=== PATIENT | male | born 1960 | race Caucasian/White ===

== ENCOUNTER 2024-07-02 17:00 | Inpatient (IN) | payer OTHER ==
[~2024-07-02] VITALS: Ht 172.7 cm; Wt 129.6 kg
[2024-07-02] MEDS: NS (Normal Saline) 0.9% 1,000 ML IV ONE ×3 (17:35→18:51)
[2024-07-02] MEDS: LIDOCAINE 2% 5ML JELLY UROJET TOP ONE (18:00)
[2024-07-02 18:26] LABS: KETONE, URINE AUTO RFX NEGATIVE (NEGATIVE); LEUKOCYTE ESTERASE UR AUTO RFX NEGATIVE (NEGATIVE); NITRITE, URINE AUTO RFX NEGATIVE (NEGATIVE); RBC, URINE AUTO RFX 2 /HPF (0-3); SQUAM EPITHELIAL CELL UR AURFX 0 /HPF (0-6); WBC, URINE AUTO RFX 1 /HPF (0-3)
[2024-07-02 18:47] LABS: AMPHETAMINES LEVEL URINE NEGATIVE (NEGATIVE); BARBITURATES URINE NEGATIVE (NEGATIVE); BENZODIAZEPINES URINE NEGATIVE (NEGATIVE); CANNABINOIDS URINE NEGATIVE (NEGATIVE); COCAINE METABOLITE URINE NEGATIVE (NEGATIVE); METHADONE URINE NEGATIVE (NEGATIVE); OPIATES URINE NEGATIVE (NEGATIVE); PHENCYCLIDINE URINE NEGATIVE (NEGATIVE)
[2024-07-02 19:46] LABS: BASO # 0.1 10^3/uL (0.0-0.2); BASO % 0.3 % (0.0-1.0); EOS # 0.1 10^3/uL (0.0-0.5); EOS % 0.6 % (0.0-3.0); HEMATOCRIT 41.3 % (42.0-52.0); HEMOGLOBIN 14.4 g/dl (13.5-17.5); LYMPH # 0.7 10^3/uL (1.5-5.0); LYMPH % 4.1 % (24.0-44.0); MEAN CORPUSCULAR HEMOGLOBIN 31.3 pg (27.0-33.0); MEAN CORPUSCULAR HGB CONC 34.9 g/dl (32.0-36.5); MEAN CORPUSCULAR VOLUME 89.8 fl (80.0-96.0); MONO % 6.2 % (2.0-8.0); NEUTROPHILS # 14.3 10^3/uL (1.5-8.5); NEUTROPHILS % 88.3 % (36.0-66.0); PLATELET COUNT, AUTOMATED 223 10^3/uL (150-450); WHITE BLOOD COUNT 16.2 10^3/uL (4.0-10.0)
[2024-07-02] MEDS: CHARCOAL ACTIVATED LIQUID 25GM/120ML BTL PO ONE (19:50)
[2024-07-02 19:59] LABS: INR 1.04; PARTIAL THROMBOPLASTIN TIME 25.5 SECONDS (24.8-34.2); PROTHROMBIN TIME 13.9 SECONDS (12.5-14.5)
[2024-07-02 20:15] LABS: CK-MB VALUE MASS 3.6 NG/ML (<3.6)
[2024-07-02 20:16] LABS: ETHYL ALCOHOL (ETHANOL) 0.005 % (0.000-0.010); LIPASE 24 U/L (12-53)
[2024-07-02 20:17] LABS: CPK CREATINE PHOSPHOKINASE 349 U/L (46-171); MB/CK RELATIVE INDEX 1.03 (< OR =4)
[2024-07-02 20:18] LABS: DIGOXIN LEVEL < 0.1 NG/ML (0.8-2.0); SALICYLATE LEVEL < 3.0 MG/DL (<30)
[2024-07-02 20:19] LABS: THYROID STIMULATING HORMONE 5.772 uIU/ML (0.55-4.78)
[2024-07-02 20:20] LABS: FREE T4 1.34 NG/DL (0.89-1.76)
[2024-07-02 20:21] LABS: ALBUMIN 3.8 G/DL (3.2-5.2); ALKALINE PHOSPHATASE 78 U/L (40-129); ALT/SGPT 43 U/L (7.0-40); AST/SGOT 30 U/L (<34); BILIRUBIN,DIRECT 0.3 MG/DL (<0.4); BILIRUBIN,TOTAL 0.9 MG/DL (0.3-1.2); BLOOD UREA NITROGEN 24 MG/DL (9-23); CALCIUM LEVEL 8.2 MG/DL (8.3-10.6); CARBON DIOXIDE LEVEL 28 MMOL/L (20-31); CHLORIDE LEVEL 99 MMOL/L (98-107); CREATININE FOR GFR 1.58 MG/DL (0.70-1.30); GLOMERULAR FILTRATION RATE 49.2 (>49); GLUCOSE, FASTING 109 MG/DL (74-106); POTASSIUM SERUM 4.4 MMOL/L (3.5-5.1); SODIUM LEVEL 136 MMOL/L (136-145); TOTAL PROTEIN 6.2 G/DL (5.7-8.2)
[2024-07-02] MEDS ORDERED: ONDANSETRON 4MG 2ML VIAL IV PRN (21:15)
[2024-07-02] MEDS: MAG SULF 1GM/100ML (MAG RUN) 1 GM in IV 1 EA IV SCH (21:52)
[2024-07-02] MEDS: LR 1,000 ML IV SCH (21:53)
[2024-07-02] MEDS: FAMOTIDINE IV BAG 20 MG in IV 1 EA IV ONE (21:55)
[2024-07-02 23:00] VITALS: BP 128/66; TEMP 99.5; O2SAT 95
[2024-07-03] VITALS (15 sets, daily range): BP systolic 118–170; BP diastolic 64–98; TEMP 98.7–100.2; O2SAT 92–98
[2024-07-03] MEDS ORDERED: INDO-16 PO (00:38)
[2024-07-03] MEDS ORDERED: ATOR1TAB21 PO (00:38)
[2024-07-03] MEDS ORDERED: LISI40TA4 PO (00:38)
[2024-07-03] MEDS ORDERED: SYMB16INH INH (00:38)
[2024-07-03] MEDS ORDERED: HYDR50TAB PO (00:38)
[2024-07-03] MEDS ORDERED: BAYE325T PO (00:39)
[2024-07-03] MEDS ORDERED: HOME MED LIST COMPLETE! XX SCH (00:40)
[2024-07-03 05:33] LABS: HEMATOCRIT 40.6 % (42.0-52.0); HEMOGLOBIN 14.3 g/dl (13.5-17.5); MEAN CORPUSCULAR HEMOGLOBIN 30.8 pg (27.0-33.0); MEAN CORPUSCULAR HGB CONC 35.2 g/dl (32.0-36.5); MEAN CORPUSCULAR VOLUME 87.5 fl (80.0-96.0); PLATELET COUNT, AUTOMATED 248 10^3/uL (150-450); RED BLOOD COUNT 4.64 10^6/uL (4.30-6.10)
[2024-07-03 05:58] LABS: BLOOD UREA NITROGEN 20 MG/DL (9-23); CALCIUM LEVEL 8.4 MG/DL (8.3-10.6); CARBON DIOXIDE LEVEL 26 MMOL/L (20-31); CHLORIDE LEVEL 97 MMOL/L (98-107); CREATININE FOR GFR 0.97 MG/DL (0.70-1.30); DIGOXIN LEVEL < 0.1 NG/ML (0.8-2.0); GLOMERULAR FILTRATION RATE 88.3 (>49); GLUCOSE, FASTING 126 MG/DL (74-106); MAGNESIUM LEVEL 1.9 MG/DL (1.8-2.4); PHOSPHORUS LEVEL 3.7 MG/DL (2.4-5.1); SODIUM LEVEL 134 MMOL/L (136-145)
[2024-07-03] MEDS ORDERED: SYMBICORT 160/4.5MCG INHALER 6GM INH PRN (06:25)
[2024-07-03] MEDS ORDERED: INDOMETHACIN 25 MG CAP PO PRN (06:25)
[2024-07-03] MEDS: lisinopriL 40MG TAB PO SCH (09:17)
[2024-07-03] MEDS: PANTOPRAZOLE 40MG VIAL IV SCH (09:18)
[2024-07-03] MEDS: ENOXAPARIN 40MG/0.4ML SYRINGE (J1650 PER 10MG) SC SCH (09:18)
[2024-07-03] MEDS: ACETAMINOPHEN 325 MG TAB PO PRN (09:22)
[2024-07-03] MEDS: hydrALAZINE 20MG/ML 1ML VIAL IV ONE (12:15)
[2024-07-03] MEDS: ACETAMINOPHEN 325 MG TAB PO ONE (12:16)
[2024-07-03] MEDS: hydrALAZINE 20MG/ML 1ML VIAL IV STA (13:27)
[2024-07-03] MEDS ORDERED: ASPIRIN 325 MG TAB PO SCH (21:00)
[2024-07-03] MEDS ORDERED: ATORVASTATIN 20 MG TAB PO SCH (21:00)
[2024-07-03] MEDS ORDERED: lisinopriL 40MG TAB PO SCH (21:00)
== END 2024-07-03 15:16 | disposition home or self-care (01) | DRG 816 ==
LOC: M ED 17:00 → EDBD 17:00 → EDBEDREQSVC 21:12 → M ED INP 21:15 → M ICU 22:59
PROVIDERS: ADMIT Student in an Organized Health Care Education/Training Program; ATTEND Student in an Organized Health Care Education/Training Program
DX: T62.2X1A Toxic effect of other ingested (parts of) plant(s), accidental (unintentional), initial encounter (principal); R11.2 Nausea with vomiting, unspecified; I10 Essential (primary) hypertension; R19.7 Diarrhea, unspecified; E86.0 Dehydration; E78.5 Hyperlipidemia, unspecified; M54.9 Dorsalgia, unspecified; G89.29 Other chronic pain; Z87.891 Personal history of nicotine dependence; Z79.82 Long term (current) use of aspirin; Z79.899 Other long term (current) drug therapy; Z88.1 Allergy status to other antibiotic agents; Z88.8 Allergy status to other drugs, medicaments and biological substances